=== PATIENT | female | born 1970 | race Two or more races ===

== ENCOUNTER 2016-09-07 16:33 | Inpatient (IN) | payer OTHER ==
[~2016-09-07] VITALS: Ht 162.6 cm; Wt 107.7 kg
[~2016-09-07 16:33] MED LIST: CALC667C PO; CHOL500050 PO; FOLI0.8T33 PO; METO25TA35 PO; ONDA4TAB7 PO; OXYC-223 PO; RENAL VITAMIN; VITAMIN D
[2016-09-07 17:33] LABS: BLOOD UREA NITROGEN 40 mg/dL (7-18)
[2016-09-07] MEDS ORDERED: SODIUM CHLORIDE FLUSH 10ML SYR IVF PRN (20:30)
[2016-09-07] MEDS ORDERED: BISACODYL 10 MG SUPP PR PRN (21:00)
[2016-09-07] MEDS ORDERED: OXYcodone IR 5MG TABLET PO PRN (21:00)
[2016-09-07] MEDS ORDERED: ACETAMINOPHEN 325 MG TABLET PO PRN (21:00)
[2016-09-07] MEDS ORDERED: POLYETHYLENE GLYCOL 17 GM PACKET PO PRN (21:00)
[2016-09-07] MEDS ORDERED: morphine SULFATE 10 MG/ML, 1ML IVPush PRN (21:00)
[2016-09-07] MEDS ORDERED: ENALAPRILAT 1.25 MG/ML, 2ML IVPush PRN (21:00)
[2016-09-07] MEDS ORDERED: DOCUSATE 100 MG CAPSULE PO PRN (21:00)
[2016-09-07] MEDS ORDERED: ONDANSETRON 2MG/ML, 2ML IVPush PRN (21:00)
[2016-09-07] MEDS ORDERED: METOPROLOL TARTRATE 25 MG TABLET PO PRN (22:00)
[2016-09-07 22:52] VITALS: BP 95/62
[2016-09-08 00:04] VITALS: BP 93/48
[2016-09-08 03:46] VITALS: BP 105/61
[2016-09-08 06:09] LABS: ASPARTATE AMINO TRANSFERASE 16 U/L (15-37); BLOOD UREA NITROGEN 46 mg/dL (7-18)
[2016-09-08 07:25] VITALS: BP 96/63
[2016-09-08] MEDS: CALCIUM ACETATE 667 MG CAPSULE PO SCH ×3 (08:21→21:52)
[2016-09-08] MEDS ORDERED: FOLIC ACID PO SCH (09:00)
[2016-09-08] MEDS ORDERED: VIT BCOMP C PO SCH (09:00)
[2016-09-08] MEDS ORDERED: LIDOCAINE 2%, 20ML ONE ×2 (10:21→10:57)
[2016-09-08] MEDS ORDERED: NALOXONE 1 MG/ML, 2ML ONE (10:26)
[2016-09-08] MEDS ORDERED: FLUMAZENIL 0.1 MG/1 ML, 5ML ONE (10:26)
[2016-09-08] MEDS ORDERED: MIDAZOLAM 1 MG/ML, 5ML ONE (10:26)
[2016-09-08] MEDS ORDERED: FENTANYL PF 100 MCG/2ML ONE (10:26)
[2016-09-08] MEDS ORDERED: VISIPAQUE 270 MG/ML, 50ML BOTTLE ONE (10:56)
[2016-09-08 12:15] VITALS: BP 110/72
[2016-09-08] MEDS ORDERED: ALBUMIN HUMAN 5% 250 ML IV ONE (15:00)
[2016-09-08] MEDS ORDERED: CATHFLO-ALTEPLASE 2 MG/2 ML CATHFLUSH ONE (16:00)
[2016-09-08 22:00] VITALS: BP 97/62
[2016-09-08 22:59] LABS: HEP B SURF. AB 50.1 mIU/mL (0.0-10.0)
[2016-09-09 01:24] VITALS: BP 102/66
[2016-09-09 05:13] LABS: BLOOD UREA NITROGEN 32 mg/dL (7-18)
[2016-09-09 07:20] VITALS: BP 103/68
[2016-09-09] MEDS: CALCIUM ACETATE 667 MG CAPSULE PO SCH ×3 (09:20→21:42)
[2016-09-09 13:02] VITALS: BP 118/70
[2016-09-09 19:40] VITALS: BP 138/75
[2016-09-10 01:27] VITALS: BP 131/70
[2016-09-10 07:10] VITALS: BP 174/107
[2016-09-10] MEDS: CALCIUM ACETATE 667 MG CAPSULE PO SCH ×3 (09:24→22:33)
[2016-09-10 13:50] LABS: BLOOD UREA NITROGEN 20 mg/dL (7-18)
[2016-09-10] MEDS ORDERED: ONDANSETRON 2MG/ML, 2ML IVPush PRN (15:00)
[2016-09-10] MEDS ORDERED: OXYcodone 5 MG/5 ML ORAL.SOL UDC PO PRN (15:00)
[2016-09-10] MEDS ORDERED: LABETALOL 5MG/ML, 20ML IV PRN (15:00)
[2016-09-10] MEDS ORDERED: ACETAMINOPHEN 325 MG TABLET PO PRN (15:00)
[2016-09-10] MEDS ORDERED: hydrALAzine 20 MG/ML, 1ML IV PRN (15:00)
[2016-09-10] MEDS ORDERED: HYDROmorphone 1 MG/ML, 1ML IV PRN (15:00)
[2016-09-10] MEDS ORDERED: EPHEDRINE 50 MG/ML, 1ML IVPush PRN (15:00)
[2016-09-10] MEDS ORDERED: ALBUTEROL SULFATE 2.5 MG/3 ML NPPB PRN (15:00)
[2016-09-10] MEDS ORDERED: METOPROLOL 1 MG/ML, 5ML IV PRN (15:00)
[2016-09-10] MEDS ORDERED: PROTAMINE SULFATE 10 MG/ML, 5ML ONE (15:12)
[2016-09-10] MEDS ORDERED: HEPARIN 1,000 UNITS/ML, 10ML ONE (15:12)
[2016-09-10] MEDS ORDERED: FENTANYL PF 100 MCG/2ML ONE ×3 (15:22→17:38)
[2016-09-10] MEDS ORDERED: MIDAZOLAM 1 MG/ML, 2ML ONE (15:22)
[2016-09-10] MEDS ORDERED: PROPOFOL 10 MG/ML, 20ML ONE (15:33)
[2016-09-10] MEDS ORDERED: DEXAMETHASONE 4 MG/ML, 1ML ONE (15:33)
[2016-09-10] MEDS ORDERED: ONDANSETRON 2MG/ML, 2ML ONE (15:33)
[2016-09-10] MEDS ORDERED: BUPIVACAINE/PF 0.5% ONE (16:40)
[2016-09-10] MEDS ORDERED: MORPHINE SULFATE 4 MG/ML, 1ML ONE (17:26)
[2016-09-10] MEDS ORDERED: OXYcodone 5 MG/5 ML ORAL.SOL UDC ONE (17:27)
[2016-09-10] MEDS: FENTANYL PF 100 MCG/2ML IV PRN ×2 (17:39→17:46)
[2016-09-10 20:00] VITALS: BP 138/82
[2016-09-11 01:37] VITALS: BP 111/51
[2016-09-11 07:24] VITALS: BP 122/71
[2016-09-11] MEDS: CALCIUM ACETATE 667 MG CAPSULE PO SCH (08:57)
[2016-09-11] MEDS ORDERED: ERGOCALCIFEROL 50,000 UNIT CAPSULE PO SCH (09:00)
[2016-09-11 10:16] VITALS: BP 116/76
== END 2016-09-11 11:00 | disposition home or self-care (01) | DRG 264 ==
LOC: ED 18:04 → EDIP 20:23 → 4EST 21:21 → DCLOUNGE 09-11 10:38
PROVIDERS: ADMIT Internal Medicine; ATTEND Internal Medicine
PROC: 02HV33Z Insertion of Infusion Device into Superior Vena Cava, Percutaneous Approach (ICD-10-PCS; principal; 2016-09-08)
PROC: B5181ZA Fluoroscopy of Superior Vena Cava using Low Osmolar Contrast, Guidance (ICD-10-PCS; 2016-09-08)
PROC: B548ZZA Ultrasonography of Superior Vena Cava, Guidance (ICD-10-PCS; 2016-09-08)
PROC: 5A1D60Z (ICD-10-PCS; 2016-09-08)
PROC: 031B0ZF Bypass Right Radial Artery to Lower Arm Vein, Open Approach (ICD-10-PCS; 2016-09-10)
DX: T82.868A Thrombosis due to vascular prosthetic devices, implants and grafts, initial encounter (principal); N18.6 End stage renal disease; E44.1 Mild protein-calorie malnutrition; I12.0 Hypertensive chronic kidney disease with stage 5 chronic kidney disease or end stage renal disease; Z68.41 Body mass index [BMI] 40.0-44.9, adult; Y83.2 Surgical operation with anastomosis, bypass or graft as the cause of abnormal reaction of the patient, or of later complication, without mention of misadventure at the time of the procedure; D63.1 Anemia in chronic kidney disease; D75.89 Other specified diseases of blood and blood-forming organs; K76.0 Fatty (change of) liver, not elsewhere classified; N25.0 Renal osteodystrophy; E66.9 Obesity, unspecified; I95.9 Hypotension, unspecified; Z90.49 Acquired absence of other specified parts of digestive tract; Z99.2 Dependence on renal dialysis; Z79.899 Other long term (current) drug therapy
CPT/HCPCS: 36415; 36565; 76937; 77001; 80048; 80053; 80061; 80069; 82306; 82607; 83036; 83735; 84439; 84443; 84703; 85025; 85610; 85730; 86704; 86706; 87340; 93990; 99156; 99157; C1894; J1100; J1644; J2250; J2405; J2704; J2720; J2997; J3010; J3490; Q9966; C1750; C1769; J1642; J2270; J2310

== ENCOUNTER 2017-01-28 05:40 | Day surgery (SDC) | payer OTHER ==
[~2017-01-28] VITALS: Ht 190.5 cm; Wt 104.0 kg
[~2017-01-28 05:40] MED LIST changes: -OXYC-223 PO; +OXYC-306 PO
[2017-01-28 06:04] VITALS: BP 143/92
[2017-01-28] MEDS ORDERED: LACTATED RINGERS 1,000 ML IV SCH (06:06)
[2017-01-28] MEDS ORDERED: MIDAZOLAM 1 MG/ML, 2ML ONE ×2 (06:41→07:11)
[2017-01-28] MEDS ORDERED: FENTANYL PF 100 MCG/2ML ONE ×3 (06:41→09:53)
[2017-01-28] MEDS ORDERED: HEPARIN 1,000 UNITS/ML, 10ML ONE (07:01)
[2017-01-28] MEDS ORDERED: BUPIVACAINE/PF 0.5% ONE (07:01)
[2017-01-28] MEDS ORDERED: PROTAMINE SULFATE 10 MG/ML, 5ML ONE (07:01)
[2017-01-28] MEDS ORDERED: THROMBIN 5,000 UNIT VIAL TP ONE (07:01)
[2017-01-28] MEDS ORDERED: PROPOFOL 10 MG/ML, 20ML ONE ×5 (07:09→07:10)
[2017-01-28] MEDS ORDERED: CEFAZOLIN 1,000 MG ONE ×2 (07:12)
[2017-01-28] MEDS ORDERED: PHENYLEPHRINE 10 MG/ML ONE ×2 (07:12→07:43)
[2017-01-28] MEDS ORDERED: WATER-INJECTION,STERILE 10 ML IV ONE (07:12)
[2017-01-28] MEDS ORDERED: LIDOCAINE-MPF 2% ,5ML ONE (07:15)
[2017-01-28] MEDS ORDERED: DEXAMETHASONE 4 MG/ML, 1ML ONE ×2 (07:43→08:02)
[2017-01-28] MEDS ORDERED: SODIUM CHLORIDE 0.9% 1,000 ML IV SCH (08:01)
[2017-01-28] MEDS ORDERED: HYDROmorphone 1 MG/ML, 1ML ONE (09:00)
[2017-01-28] MEDS ORDERED: ONDANSETRON 2MG/ML, 2ML ONE ×2 (09:07→09:41)
[2017-01-28] MEDS ORDERED: KETOROLAC 30 MG/1 ML ONE (09:08)
[2017-01-28] MEDS ORDERED: PROMETHAZINE 25 MG/ML, 1ML ONE ×2 (09:20→10:07)
[2017-01-28] MEDS ORDERED: ACETAMINOPHEN 325 MG TABLET PO PRN (09:30)
[2017-01-28] MEDS ORDERED: HYDROmorphone 1 MG/ML, 1ML IV PRN (09:30)
[2017-01-28] MEDS ORDERED: FENTANYL PF 100 MCG/2ML IV PRN (09:30)
[2017-01-28] MEDS ORDERED: MEPERIDINE/PF 25MG/0.5ML IVPush PRN (09:30)
[2017-01-28] MEDS ORDERED: PROMETHAZINE 25 MG/ML, 1ML IV PRN (09:30)
[2017-01-28] MEDS ORDERED: OXYcodone 5 MG/5 ML ORAL.SOL UDC PO PRN (09:30)
[2017-01-28] MEDS ORDERED: LABETALOL 5MG/ML, 20ML IV PRN (09:30)
[2017-01-28] MEDS ORDERED: ONDANSETRON 2MG/ML, 2ML IVPush PRN (09:30)
[2017-01-28] MEDS ORDERED: hydrALAzine 20 MG/ML, 1ML IV PRN (09:30)
[2017-01-28] MEDS ORDERED: HEPARIN 5,000 UNITS/ML, 1ML IV ONE (10:30)
[2017-01-28] MEDS ORDERED: HEPARIN 1,000 UNITS/ML, 1ML IV ONE (11:00)
== END 2017-01-28 16:40 ==
LOC: OUT 05:40
PROVIDERS: ATTEND Surgery
DX: N18.6 End stage renal disease (principal)
CPT/HCPCS: 36415; 36821; 80047; J0690; J1100; J1170; J1644; J1885; J2250; J2370; J2405; J2550; J2704; J2720; J3010; J3490

== ENCOUNTER 2017-10-22 01:46 | Emergency (ER) | payer MEDICAID, OTHER ==
[~2017-10-22] VITALS: Ht 160 cm; Wt 100.0 kg
[2017-10-22 01:51] VITALS: BP 177/114
[2017-10-22] MEDS ORDERED: HYDROcodone/APAP 5/325 TABLET ONE (02:24)
[2017-10-22] MEDS ORDERED: HYDROcodone/APAP 5/325 TABLET PO PRN (02:30)
== END 2017-10-22 04:52 | disposition home or self-care (01) ==
LOC: ED 03:29
DX: S62.102A Fracture of unspecified carpal bone, left wrist, initial encounter for closed fracture (principal); I12.0 Hypertensive chronic kidney disease with stage 5 chronic kidney disease or end stage renal disease; N18.6 End stage renal disease; Z99.2 Dependence on renal dialysis; W19.XXXA Unspecified fall, initial encounter; Y93.89 Activity, other specified; Y92.89 Other specified places as the place of occurrence of the external cause; Y99.8 Other external cause status
CPT/HCPCS: 29125; 99284

== ENCOUNTER 2020-01-21 09:29 | Inpatient (IN) | payer MEDICAID ==
[~2020-01-21] VITALS: Ht 162.6 cm; Wt 108.5 kg
--- NOTE | 2020-01-21 10:20 | NUR ---
PT DESATS TO 83% WHILE IN ROOM, PT PLACED ON 2.5L NC, PT STATES SHE HAS HX OF SLEEP APNEA AND HAD WORN O2 AT HOME AT NIGHT BUT HAS NOT IN THREE YRS. ERP UPDATED
[2020-01-21 10:58] LABS: BASOPHILS % (AUTO) 0 % (0-1); EOSINOPHILS # (AUTO) 0.02 x10^3/uL (0-0.4); EOSINOPHILS % (AUTO) 0 % (1-7); LYMPHOCYTES # (AUTO) 0.68 x10^3/uL (1-3.4); LYMPHOCYTES % (AUTO) 9 % (22-44); MD NO; MEAN CORPUSCULAR HEMOGLOBIN 33.4 pg (27.0-34.8); MEAN CORPUSCULAR HGB CONC 32.9 g/dL (32.4-35.8); MEAN PLATELET VOLUME 8.1 fL (7.4-10.4); MONOCYTES # (AUTO) 0.54 x10^3/uL (0.2-0.8); MONOCYTES % (AUTO) 7 % (2-9); NEUTROPHILS # (AUTO) 6.03 x10^3/uL (1.8-6.8); NEUTROPHILS % (AUTO) 83 % (42-75); PLATELET COUNT 217 x10^3/uL (130-400); RED BLOOD COUNT 3.92 x10^6/uL (3.82-5.3); RED CELL DISTRIBUTION WIDTH 14.7 % (9.6-15.2)
[2020-01-21] MEDS ORDERED: CEFTRIAXONE PMX 1GM/50ML 50 ML IVPB ONE (11:00)
[2020-01-21] MEDS ORDERED: DOXYCYCLINE 100 MG in DEXTROSE 5% 250 ML IV ONE (11:00)
[2020-01-21 11:06] LABS: ALANINE AMINOTRANSFERASE 21 U/L (12-78); ALBUMIN 2.7 g/dL (3.4-5.0); ANION GAP 16 mmol/L (5-15); CALCIUM 9.1 mg/dL (8.5-10.1); CHLORIDE 95 mmol/L (98-107)
[2020-01-21 11:08] LABS: ALKALINE PHOSPHATASE 76 U/L (45-117); BILIRUBIN,TOTAL 0.5 mg/dL (0.2-1.0); TOTAL PROTEIN 7.7 g/dL (6.4-8.2)
[2020-01-21] MEDS ORDERED: CEFTRIAXONE PMX 1GM/50ML 50 ML ONE (11:09)
--- NOTE | 2020-01-21 11:29 | NUR ---
PIV INITIATED BY TASK RN, ABX BEGAN POST BC DRAW. VSS, PT REMAINS 98-99% ON 3L.
--- NOTE | 2020-01-21 11:32 | NUR ---
RN WINSOME IS ASSISTING THE PRIMARY CARE RN WITH THE PT.'S CARE. PT. REMAINS MONITORED WITH THE HOB ELEVATED GREATER THAN 30 DEGREES. VSS. IV ACCESS ESTABLISHED. BLOOD CULTURES DRAWN X 2 WELL OTHER LABS. PT.'S IV ABX ARE INFUSING AFTER LABS WERE OBTAINED. PT. IS RESTING WITHOUT CONCERNS, WITH A BLANKET IN PLACE FOR WARMTH. SIDERAILS REMAIN UP X 2 WITH THE CALL LIGHT IN REACH.
[2020-01-21 11:58] LABS: D-DIMER (DIC) 0.74 ug/mlFEU (0.00-0.52); PROTIME 10.2 Seconds (9.6-11.5)
[2020-01-21] MEDS ORDERED: METOPROLOL TARTRATE 25 MG TAB PO PRN (12:00)
--- NOTE | 2020-01-21 12:57 | NUR ---
PT RESTING ON GURNEY AT THIS TIME, VISIBLE CHEST RISE AND FALL NOTED. VSS. THIS RN SPOKE WITH NEPHRO, ORDERS PLACED FOR HEMODIAYLSIS.
--- NOTE | 2020-01-21 14:04 | NUR ---
DR TRUONG (ADMITTING) CALLED TO OBTAIN ADMISSION ORDER, SHE IS ON HER WAY TO SEE PT
[2020-01-21] MEDS: DOXYCYCLINE 100 MG in DEXTROSE 5% 250 ML IV SCH (14:30)
[2020-01-21] MEDS: CEFTRIAXONE PMX 1GM/50ML 50 ML IV SCH (14:30)
--- NOTE | 2020-01-21 15:04 | NUR ---
REPORT RECEIVED FROM SANDRO URENA. PLAN OF CARE DISCUSSED.
--- NOTE | 2020-01-21 15:45 | NUR ---
ATTEMPTED TO CALL REPORT X1.
--- NOTE | 2020-01-21 16:00 | NUR ---
REPORT GIVEN TO SANDRO DOAN. PLAN OF CARE DISCUSSED
[2020-01-21 16:34] VITALS: BP 114/72
[2020-01-21] MEDS: CALCIUM ACETATE 667 MG CAPSULE PO SCH ×2 (17:45→19:18)
[2020-01-21] MEDS: HEPARIN 5,000 UNITS/ML, 1ML SQ SCH (19:18)
[2020-01-21 19:48] VITALS: BP 136/84
[2020-01-21 22:59] VITALS: BP 98/64
[2020-01-21] MEDS: ACETAMINOPHEN 325 MG TABLET PO PRN (23:22)
[2020-01-22 01:20] VITALS: BP 101/61
[2020-01-22] MEDS: DOXYCYCLINE 100 MG in DEXTROSE 5% 250 ML IV SCH ×2 (03:19→16:18)
[2020-01-22 06:06] LABS: BASOPHILS # (AUTO) 0.02 x10^3/uL (0-0.1); BASOPHILS % (AUTO) 0 % (0-1); EOSINOPHILS % (AUTO) 0 % (1-7); LYMPHOCYTES # (AUTO) 1.12 x10^3/uL (1-3.4); LYMPHOCYTES % (AUTO) 17 % (22-44); MD NO; MEAN CORPUSCULAR HEMOGLOBIN 33.1 pg (27.0-34.8); MEAN CORPUSCULAR HGB CONC 32.7 g/dL (32.4-35.8); MEAN PLATELET VOLUME 7.7 fL (7.4-10.4); MONOCYTES # (AUTO) 0.73 x10^3/uL (0.2-0.8); MONOCYTES % (AUTO) 11 % (2-9); NEUTROPHILS # (AUTO) 4.64 x10^3/uL (1.8-6.8); NEUTROPHILS % (AUTO) 71 % (42-75); PLATELET COUNT 208 x10^3/uL (130-400); RED BLOOD COUNT 3.77 x10^6/uL (3.82-5.3); RED CELL DISTRIBUTION WIDTH 14.1 % (9.6-15.2)
[2020-01-22 06:17] LABS: ANION GAP 12 mmol/L (5-15); CALCIUM 9.1 mg/dL (8.5-10.1); CHLORIDE 96 mmol/L (98-107); CREATININE 8.55 mg/dL (0.55-1.02)
[2020-01-22 07:57] VITALS: BP 105/71
[2020-01-22] MEDS: CALCIUM ACETATE 667 MG CAPSULE PO SCH ×3 (08:46→20:14)
[2020-01-22] MEDS: HEPARIN 5,000 UNITS/ML, 1ML SQ SCH ×2 (08:47→19:44)
[2020-01-22] MEDS ORDERED: MULTIVITS,STRESS FORMULA 1 TABLET PO SCH (09:00)
[2020-01-22] MEDS ORDERED: ALBUMIN HUMAN 25% 100 ML ONE (10:57)
[2020-01-22] MEDS ORDERED: ALBUMIN HUMAN 25% 50 ML IV PRN (11:00)
[2020-01-22] MEDS ORDERED: ALBUMIN HUMAN 25% 100 ML IV PRN (11:00)
[2020-01-22 14:00] VITALS: BP 97/59
[2020-01-22] MEDS ORDERED: REMDESIVIR 100 MG in SODIUM CHLORIDE 0.9% 250 ML IVPB ONE (15:00)
[2020-01-22] MEDS: CEFTRIAXONE PMX 1GM/50ML 50 ML IV SCH (15:43)
[2020-01-22] MEDS ORDERED: ASCORBIC ACID 500 MG TABLET ONE (16:54)
[2020-01-22] MEDS: ASCORBIC ACID 250 MG TAB PO SCH (17:07)
[2020-01-22] MEDS: ACETAMINOPHEN 325 MG TABLET PO PRN (19:45)
[2020-01-22 19:53] VITALS: BP 98/59
[2020-01-22] MEDS: DEXAMETHASONE 4 MG/ML, 1ML IVPush SCH (20:14)
[2020-01-22] MEDS: THIAMINE 100MG TABLET PO SCH (20:14)
[2020-01-23 01:23] VITALS: BP 95/57
[2020-01-23 01:47] VITALS: BP 98/62
[2020-01-23] MEDS: DOXYCYCLINE 100 MG in DEXTROSE 5% 250 ML IV SCH ×2 (01:52→18:10)
[2020-01-23] MEDS: HEPARIN 5,000 UNITS/ML, 1ML SQ SCH (01:53)
[2020-01-23] MEDS: ACETAMINOPHEN 325 MG TABLET PO PRN (04:44)
[2020-01-23 06:02] LABS: INTERNATIONAL NORMALIZED RATIO 1.02 (0.93-1.1); PROTHROMBIN TIME 10.5 Seconds (9.6-11.5)
[2020-01-23 06:04] LABS: CHLORIDE 95 mmol/L (98-107)
[2020-01-23 06:13] LABS: ALANINE AMINOTRANSFERASE 22 U/L (12-78); ALBUMIN 2.8 g/dL (3.4-5.0); ALKALINE PHOSPHATASE 71 U/L (45-117); ANION GAP 13 mmol/L (5-15); BILIRUBIN,TOTAL 0.5 mg/dL (0.2-1.0); CALCIUM 9.9 mg/dL (8.5-10.1); CREATININE 6.78 mg/dL (0.55-1.02); TOTAL PROTEIN 8.2 g/dL (6.4-8.2)
[2020-01-23 08:16] VITALS: BP 90/60
[2020-01-23] MEDS: CALCIUM ACETATE 667 MG CAPSULE PO SCH ×3 (08:43→20:26)
[2020-01-23] MEDS: ZINC SULFATE 220 MG CAPSULE PO SCH (08:43)
[2020-01-23] MEDS: DEXAMETHASONE 4 MG/ML, 1ML IVPush SCH ×2 (08:43→12:48)
[2020-01-23] MEDS: THIAMINE 100MG TABLET PO SCH ×2 (08:43→20:05)
[2020-01-23] MEDS: ASCORBIC ACID 250 MG TAB PO SCH ×2 (08:43→17:24)
[2020-01-23] MEDS ORDERED: HEPARIN 5,000 UNITS/ML, 1ML IV ONE (09:30)
[2020-01-23] MEDS ORDERED: HEPARIN 5,000 UNITS/ML, 1ML IV PRN (09:30)
[2020-01-23] MEDS: HEPARIN 25,000 UNITS/250ML PMX 250 ML IV PRN (12:49)
[2020-01-23 13:03] VITALS: BP 106/70
[2020-01-23] MEDS: CEFTRIAXONE PMX 1GM/50ML 50 ML IV SCH (17:17)
[2020-01-23] MEDS ORDERED: ASCORBIC ACID 500 MG TABLET ONE (17:22)
[2020-01-23] MEDS: REMDESIVIR 50 MG in SODIUM CHLORIDE 0.9% 250 ML IVPB SCH (20:05)
[2020-01-23 20:26] VITALS: BP 97/64
[2020-01-24 00:44] VITALS: BP 95/65
[2020-01-24] MEDS: DOXYCYCLINE 100 MG in DEXTROSE 5% 250 ML IV SCH ×2 (02:45→16:32)
[2020-01-24 05:25] LABS: CHLORIDE 94 mmol/L (98-107)
[2020-01-24 05:34] LABS: ALANINE AMINOTRANSFERASE 23 U/L (12-78); ALBUMIN 2.4 g/dL (3.4-5.0); ALKALINE PHOSPHATASE 61 U/L (45-117); ANION GAP 16 mmol/L (5-15); BILIRUBIN,TOTAL 0.3 mg/dL (0.2-1.0); CALCIUM 9.6 mg/dL (8.5-10.1); TOTAL PROTEIN 7.2 g/dL (6.4-8.2)
[2020-01-24 06:56] VITALS: BP 101/67
[2020-01-24] MEDS ORDERED: ASCORBIC ACID 500 MG TABLET ONE ×2 (09:00→16:29)
[2020-01-24] MEDS: CALCIUM ACETATE 667 MG CAPSULE PO SCH ×3 (09:09→19:46)
[2020-01-24] MEDS: ASCORBIC ACID 250 MG TAB PO SCH ×2 (09:09→16:33)
[2020-01-24] MEDS: THIAMINE 100MG TABLET PO SCH ×2 (09:09→19:46)
[2020-01-24] MEDS: ZINC SULFATE 220 MG CAPSULE PO SCH (09:10)
[2020-01-24] MEDS: DEXAMETHASONE 4 MG/ML, 1ML IVPush SCH (09:11)
[2020-01-24] MEDS: HEPARIN 25,000 UNITS/250ML PMX 250 ML IV PRN (11:26)
[2020-01-24] MEDS: ONDANSETRON 2MG/ML, 2ML IVPush PRN (11:38)
[2020-01-24 12:19] VITALS: BP 114/68
[2020-01-24] MEDS: CEFTRIAXONE PMX 1GM/50ML 50 ML IV SCH (15:14)
[2020-01-24 19:30] VITALS: BP 112/67
[2020-01-24] MEDS: REMDESIVIR 50 MG in SODIUM CHLORIDE 0.9% 250 ML IVPB SCH (19:46)
[2020-01-24] MEDS: ACETAMINOPHEN 325 MG TABLET PO PRN (23:06)
[2020-01-25 00:44] VITALS: BP 108/67
[2020-01-25] MEDS: DOXYCYCLINE 100 MG in DEXTROSE 5% 250 ML IV SCH (02:12)
[2020-01-25 06:38] LABS: CHLORIDE 90 mmol/L (98-107)
[2020-01-25 06:42] LABS: INTERNATIONAL NORMALIZED RATIO 1.11 (0.93-1.1); PROTHROMBIN TIME 11.4 Seconds (9.6-11.5)
[2020-01-25 06:44] LABS: ALANINE AMINOTRANSFERASE 46 U/L (12-78); ALBUMIN 2.3 g/dL (3.4-5.0); ALKALINE PHOSPHATASE 64 U/L (45-117); ANION GAP 19 mmol/L (5-15); BILIRUBIN,TOTAL 0.4 mg/dL (0.2-1.0); TOTAL PROTEIN 7.1 g/dL (6.4-8.2)
[2020-01-25 07:04] VITALS: BP 118/67
[2020-01-25] MEDS: ASCORBIC ACID 250 MG TAB PO SCH ×2 (08:00→16:09)
[2020-01-25] MEDS ORDERED: ASCORBIC ACID 500 MG TABLET ONE (08:49)
[2020-01-25] MEDS: ZINC SULFATE 220 MG CAPSULE PO SCH (09:20)
[2020-01-25] MEDS: DEXAMETHASONE 4 MG/ML, 1ML IVPush SCH (09:20)
[2020-01-25] MEDS: THIAMINE 100MG TABLET PO SCH ×2 (09:20→21:35)
[2020-01-25] MEDS: CALCIUM ACETATE 667 MG CAPSULE PO SCH ×3 (09:20→21:35)
[2020-01-25] MEDS: AMOXICILLIN/CLAV 875-125MG TABLET PO SCH ×2 (10:19→21:35)
[2020-01-25] MEDS: DOXYCYCLINE 100MG TABLET PO SCH ×2 (10:19→21:35)
[2020-01-25] MEDS: ONDANSETRON 2MG/ML, 2ML IVPush PRN (11:55)
[2020-01-25 12:10] VITALS: BP 124/79
[2020-01-25] MEDS: HEPARIN 25,000 UNITS/250ML PMX 250 ML IV PRN (14:31)
[2020-01-25 19:16] VITALS: BP 104/68
[2020-01-25] MEDS: REMDESIVIR 50 MG in SODIUM CHLORIDE 0.9% 250 ML IVPB SCH (21:34)
[2020-01-26 00:58] VITALS: BP 108/69
[2020-01-26 06:11] LABS: ALANINE AMINOTRANSFERASE 123 U/L (12-78); ALBUMIN 3.3 g/dL (3.4-5.0); ANION GAP 13 mmol/L (5-15); CALCIUM 10.1 mg/dL (8.5-10.1); CHLORIDE 99 mmol/L (98-107); CREATININE 7.17 mg/dL (0.55-1.02)
[2020-01-26 06:13] LABS: ALKALINE PHOSPHATASE 69 U/L (45-117); BILIRUBIN,TOTAL 0.6 mg/dL (0.2-1.0); TOTAL PROTEIN 7.3 g/dL (6.4-8.2)
[2020-01-26 07:28] VITALS: BP 107/68
[2020-01-26] MEDS ORDERED: ASCORBIC ACID 500 MG TABLET ONE ×2 (08:18→16:17)
[2020-01-26] MEDS: ASCORBIC ACID 250 MG TAB PO SCH ×2 (08:24→16:38)
[2020-01-26] MEDS: THIAMINE 100MG TABLET PO SCH (08:24)
[2020-01-26] MEDS: DOXYCYCLINE 100MG TABLET PO SCH (08:24)
[2020-01-26] MEDS: ZINC SULFATE 220 MG CAPSULE PO SCH (08:24)
[2020-01-26] MEDS: CALCIUM ACETATE 667 MG CAPSULE PO SCH ×2 (08:24→16:37)
[2020-01-26] MEDS: AMOXICILLIN/CLAV 875-125MG TABLET PO SCH (08:24)
[2020-01-26 11:51] VITALS: BP 109/70
[2020-01-26] MEDS ORDERED: ERGOCALCIFEROL 50,000 UNIT CAPSULE PO SCH (12:00)
[2020-01-26] MEDS: REMDESIVIR 50 MG in SODIUM CHLORIDE 0.9% 250 ML IVPB SCH (13:23)
[2020-01-26] MEDS ORDERED: DOXY100T PO (15:05)
[2020-01-26] MEDS ORDERED: THIA100T67 PO (15:05)
[2020-01-26] MEDS ORDERED: ASCO250T12 PO (15:05)
[2020-01-26] MEDS ORDERED: ZINC220C7 PO (15:05)
[2020-01-26] MEDS ORDERED: AMOX1TAB12 PO (15:05)
[2020-01-26] MEDS ORDERED: APIX2.5T PO (15:45)
[2020-01-27] MEDS ORDERED: RIVAROXABAN 10 MG TABLET PO SCH (06:00)
== END 2020-01-26 19:45 | disposition home or self-care (01) | DRG 137 ==
LOC: ED 10:35 → EDIP 14:18 → 4EST 16:20
PROVIDERS: ADMIT Internal Medicine; ATTEND Internal Medicine
PROC: 5A1D70Z Performance of Urinary Filtration, Intermittent, Less than 6 Hours Per Day (ICD-10-PCS; principal; 2020-01-22)
PROC: XW13325 Transfusion of Convalescent Plasma (Nonautologous) into Peripheral Vein, Percutaneous Approach, New Technology Group 5 (ICD-10-PCS; 2020-01-23)
PROC: XW033E5 Introduction of Remdesivir Anti-infective into Peripheral Vein, Percutaneous Approach, New Technology Group 5 (ICD-10-PCS; 2020-01-23)
PROC: 5A1D70Z Performance of Urinary Filtration, Intermittent, Less than 6 Hours Per Day (ICD-10-PCS; 2020-01-25)
DX: U07.1 COVID-19 (principal); J12.89 Other viral pneumonia; J96.01 Acute respiratory failure with hypoxia; D75.89 Other specified diseases of blood and blood-forming organs; D63.1 Anemia in chronic kidney disease; I12.0 Hypertensive chronic kidney disease with stage 5 chronic kidney disease or end stage renal disease; N18.6 End stage renal disease; Z99.2 Dependence on renal dialysis; Z90.49 Acquired absence of other specified parts of digestive tract; E66.01 Morbid (severe) obesity due to excess calories; Z68.41 Body mass index [BMI] 40.0-44.9, adult; Z91.040 Latex allergy status; Z91.048 Other nonmedicinal substance allergy status; E87.70 Fluid overload, unspecified; J81.1 Chronic pulmonary edema; Z78.9 Other specified health status; G47.30 Sleep apnea, unspecified; I95.9 Hypotension, unspecified
CPT/HCPCS: 36415; 71045; 80048; 80053; 82728; 83605; 83615; 84145; 85025; 85049; 85379; 85384; 85520; 85610; 85730; 86140; 86705; 86706; 87040; 87340; 87635; 90935; 93005; 96365; 96375; 99285; G0378; J0696; J1100; J1644; J2405; J7060; J7050

== ENCOUNTER 2020-11-03 13:50 | Emergency (ER) | payer MEDICAID ==
[~2020-11-03 13:50] MED LIST changes: +AMOX1TAB12 PO; +APIX2.5T PO; +ASCO250T12 PO; +DOXY100T PO; -OXYC-306 PO; +OXYC1TAB17 PO; +THIA100T67 PO; +ZINC220C7 PO
[2020-11-04] MEDS ORDERED: OXYC1TAB14 PO (12:48)
[2020-11-04] MEDS ORDERED: SULF1TAB24 PO (12:51)
== END 2020-11-03 15:02 | disposition home or self-care (01) ==
LOC: ED 14:55
DX: Z02.9 Encounter for administrative examinations, unspecified (principal)

== ENCOUNTER 2020-11-03 13:52 | Observation (INO) | payer MEDICAID ==
[~2020-11-03] VITALS: Ht 157.5 cm; Wt 103.0 kg
--- NOTE | 2020-11-03 14:37 | NUR ---
task RN: pt has purulent drainage from dialysis fistula. Dr. Goldberg has been to bedside and wound culture has been collected. pt sitting up on gurney in position of comfort
--- NOTE | 2020-11-03 15:12 | NUR ---
UNABLE TO START PIVX1. SOPHIE JO AT BEDSIDE W/ US.
[2020-11-03 15:55] LABS: BASOPHILS % (AUTO) 1 % (0-1); EOSINOPHILS % (AUTO) 0 % (1-7); LYMPHOCYTES % (AUTO) 15 % (22-44); MEAN CORPUSCULAR HGB CONC 33.6 g/dL (32.4-35.8); MONOCYTES % (AUTO) 13 % (2-9); NEUTROPHILS % (AUTO) 72 % (42-75); PLATELET COUNT 204 x10^3/uL (130-400); RED BLOOD COUNT 3.77 x10^6/uL (3.82-5.3)
[2020-11-03 16:04] LABS: ANION GAP 10 mmol/L (5-15); CALCIUM 9.9 mg/dL (8.5-10.1); CHLORIDE 96 mmol/L (98-107); CREATININE 9.25 mg/dL (0.55-1.02)
[2020-11-03] MEDS ORDERED: LORazepam 2 MG/ML, 1ML ONE (17:48)
[2020-11-03] MEDS ORDERED: FENTANYL PF 100 MCG/2ML ONE (17:48)
[2020-11-03] MEDS ORDERED: LIDOCAINE-MPF 1%, 5ML ONE (17:53)
--- NOTE | 2020-11-03 17:55 | NUR ---
AT BEDSIDE FOR I&D. MEDICATED PER EMAR. STEVEN HURLEY.
[2020-11-03] MEDS ORDERED: SULFAMETH./TRIMETHOPRIM DS 800MG/160MG TABLET PO ONE (18:30)
[2020-11-03] MEDS ORDERED: LORazepam 2 MG/ML, 1ML IVPush ONE (18:30)
[2020-11-03] MEDS ORDERED: FENTANYL PF 100 MCG/2ML IVPush ONE (18:30)
[2020-11-03] MEDS ORDERED: MELATONIN 5 MG TABLET PO PRN (19:00)
[2020-11-03] MEDS ORDERED: ACETAMINOPHEN 325 MG TABLET PO PRN (19:00)
[2020-11-03] MEDS ORDERED: OXYcodone IR 5MG TABLET PO PRN (19:00)
[2020-11-03] MEDS ORDERED: LABETALOL 5MG/ML, 20ML IVPush PRN (19:00)
[2020-11-03] MEDS ORDERED: POLYETHYLENE GLYCOL 17 GM PACKET PO PRN (19:00)
[2020-11-03] MEDS ORDERED: HEPARIN 5,000 UNITS/ML, 1ML SQ SCH (19:00)
[2020-11-03] MEDS ORDERED: HYDROmorphone 2 MG/ML, 1ML IVPush PRN (19:00)
[2020-11-03] MEDS ORDERED: ONDANSETRON 2MG/ML, 2ML IVPush PRN (19:00)
[2020-11-03] MEDS ORDERED: METOPROLOL TARTRATE 25 MG TAB PO PRN (19:00)
--- NOTE | 2020-11-03 19:01 | NUR ---
Report from Ellen JO
[2020-11-03] MEDS ORDERED: SULFAMETH./TRIMETHOPRIM DS 800MG/160MG TABLET ONE (19:02)
[2020-11-03] MEDS: CALCIUM ACETATE 667 MG CAPSULE PO SCH (21:34)
[2020-11-03] MEDS: APIXABAN 2.5 MG TABLET PO SCH (21:34)
[2020-11-03] MEDS: THIAMINE 100MG TABLET PO SCH (21:35)
[2020-11-04 01:02] VITALS: BP 105/67
[2020-11-04 04:32] LABS: BASOPHILS % (AUTO) 1 % (0-1); EOSINOPHILS % (AUTO) 1 % (1-7); LYMPHOCYTES % (AUTO) 22 % (22-44); MEAN CORPUSCULAR HEMOGLOBIN 34.7 pg (27.0-34.8); MEAN CORPUSCULAR HGB CONC 34.4 g/dL (32.4-35.8); MEAN PLATELET VOLUME 8.9 fL (7.4-10.4); MONOCYTES % (AUTO) 14 % (2-9); NEUTROPHILS % (AUTO) 61 % (42-75); PLATELET COUNT 191 x10^3/uL (130-400); RED BLOOD COUNT 3.37 x10^6/uL (3.82-5.3); RED CELL DISTRIBUTION WIDTH 13.9 % (9.6-15.2)
[2020-11-04 04:43] LABS: ANION GAP 9 mmol/L (5-15); CALCIUM 9.7 mg/dL (8.5-10.1); CHLORIDE 97 mmol/L (98-107)
[2020-11-04 06:59] VITALS: BP 110/73
[2020-11-04] MEDS ORDERED: ASCORBIC ACID 250 MG TAB PO SCH (08:00)
[2020-11-04] MEDS: CALCIUM ACETATE 667 MG CAPSULE PO SCH (08:54)
[2020-11-04] MEDS: THIAMINE 100MG TABLET PO SCH (08:54)
[2020-11-04] MEDS: APIXABAN 2.5 MG TABLET PO SCH (08:54)
[2020-11-04] MEDS ORDERED: ZINC SULFATE 220 MG CAPSULE PO SCH (09:00)
[2020-11-04] MEDS ORDERED: OXYC1TAB14 PO (12:48)
[2020-11-04] MEDS ORDERED: SULF1TAB24 PO (12:51)
[2020-11-04 16:29] VITALS: BP 102/55
== END 2020-11-04 17:18 | disposition home or self-care (01) ==
LOC: ED 18:52 → EDIP 18:58 → 4EST 20:42
PROVIDERS: ADMIT Internal Medicine; ATTEND Internal Medicine
DX: T82.898A Other specified complication of vascular prosthetic devices, implants and grafts, initial encounter (principal); T82.868A Thrombosis due to vascular prosthetic devices, implants and grafts, initial encounter; I12.0 Hypertensive chronic kidney disease with stage 5 chronic kidney disease or end stage renal disease; N18.6 End stage renal disease; L02.413 Cutaneous abscess of right upper limb; D63.1 Anemia in chronic kidney disease; E87.1 Hypo-osmolality and hyponatremia; Z91.040 Latex allergy status; Z79.899 Other long term (current) drug therapy; Z79.01 Long term (current) use of anticoagulants; Z99.2 Dependence on renal dialysis
CPT/HCPCS: 36415; 76882; 80048; 82040; 83605; 84145; 85025; 87040; 87070; 87077; 87186; 87205; 96374; 96375; 99284; G0378; J2060; J3010; G0257

== ENCOUNTER 2020-11-09 08:15 | Emergency (ER) | payer MEDICAID ==
[~2020-11-09] VITALS: Ht 157.5 cm; Wt 104.4 kg
[~2020-11-09 08:15] MED LIST changes: +OXYC1TAB14 PO; +SULF1TAB24 PO
[2020-11-09 10:08] LABS: ALBUMIN 3.1 g/dL (3.4-5.0); ANION GAP 8 mmol/L (5-15); BASOPHILS % (AUTO) 1 % (0-1); CALCIUM 9.9 mg/dL (8.5-10.1); CHLORIDE 97 mmol/L (98-107); EOSINOPHILS % (AUTO) 2 % (1-7); LYMPHOCYTES % (AUTO) 26 % (22-44); MEAN CORPUSCULAR HEMOGLOBIN 34.1 pg (27.0-34.8); MEAN CORPUSCULAR HGB CONC 33.6 g/dL (32.4-35.8); MEAN PLATELET VOLUME 8.2 fL (7.4-10.4); MONOCYTES % (AUTO) 9 % (2-9); NEUTROPHILS % (AUTO) 62 % (42-75); PLATELET COUNT 351 x10^3/uL (130-400); RED BLOOD COUNT 3.79 x10^6/uL (3.82-5.3); RED CELL DISTRIBUTION WIDTH 14.3 % (9.6-15.2)
[2020-11-09 11:42] VITALS: BP 102/68
--- NOTE | 2020-11-09 11:46 | NUR ---
PT REC'VD DISCHARGE INSTRUCTIONS AND EDUCATION. PT HAD NO FURTHER QUESTIONS. PT AMBULATED TO DC AREA, STEADY GAIT.
--- NOTE | 2020-11-09 11:50 | NUR ---
PT PUT BACK IN ROOM AT REQUEST OF NEPHROLOGY. NBEPHROLOGY TO COME SEE PT IN ED.
--- NOTE | 2020-11-09 12:20 | NUR ---
PT RELEASED BY NEPHRO. AMBULATED TO DC AREA, STEADY GAIT. SON WITH PT.
== END 2020-11-09 12:23 | disposition home or self-care (01) ==
LOC: ED 09:12
DX: S50.01XA Contusion of right elbow, initial encounter (principal); L03.113 Cellulitis of right upper limb; I12.0 Hypertensive chronic kidney disease with stage 5 chronic kidney disease or end stage renal disease; N18.6 End stage renal disease; Z99.2 Dependence on renal dialysis; X58.XXXA Exposure to other specified factors, initial encounter; Y93.89 Activity, other specified; Y92.89 Other specified places as the place of occurrence of the external cause; Y99.8 Other external cause status
CPT/HCPCS: 36415; 80048; 82040; 85025; 99284

== ENCOUNTER 2020-12-12 08:51 | Inpatient (IN) | payer MEDICAID ==
[~2020-12-12] VITALS: Ht 160 cm; Wt 117.0 kg
--- NOTE | 2020-12-12 09:38 | NUR ---
PATIENT TO ROOM FROM LOBBY
[2020-12-12] MEDS ORDERED: SODIUM CHLORIDE FLUSH 10ML SYR IVF ONE (10:00)
[2020-12-12 10:22] LABS: BASOPHILS % (AUTO) 0 % (0-1); EOSINOPHILS % (AUTO) 2 % (1-7); LYMPHOCYTES % (AUTO) 29 % (22-44); MEAN CORPUSCULAR HEMOGLOBIN 34.1 pg (27.0-34.8); MEAN CORPUSCULAR HGB CONC 33.3 g/dL (32.4-35.8); MEAN PLATELET VOLUME 8.6 fL (7.4-10.4); MONOCYTES % (AUTO) 9 % (2-9); NEUTROPHILS % (AUTO) 59 % (42-75); PLATELET COUNT 206 x10^3/uL (130-400); RED BLOOD COUNT 4.07 x10^6/uL (3.82-5.3)
[2020-12-12 10:31] LABS: ALANINE AMINOTRANSFERASE 13 U/L (12-78); ALBUMIN 3.5 g/dL (3.4-5.0); ANION GAP 14 mmol/L (5-15); CALCIUM 10.5 mg/dL (8.5-10.1); CHLORIDE 100 mmol/L (98-107)
[2020-12-12 10:34] LABS: ALKALINE PHOSPHATASE 74 U/L (45-117); BILIRUBIN,TOTAL 0.6 mg/dL (0.2-1.0); TOTAL PROTEIN 8.2 g/dL (6.4-8.2)
[2020-12-12 11:07] LABS: INTERNATIONAL NORMALIZED RATIO 1.03 (0.93-1.1)
--- NOTE | 2020-12-12 11:30 | NUR ---
PT RESTING IN BED IN [facility]. NO STATED NEEDS AT THIS TIME. PT LAST ATE AT 0530 TODAY. PT AWARE TO BE NPO, PER LAVINIA IRENE THEY WANT TO DO SURGERY TODAY.
[2020-12-12] MEDS: METOPROLOL TARTRATE 25 MG TAB PO SCH ×2 (12:00→21:00)
--- NOTE | 2020-12-12 12:19 | NUR ---
IV STARTED. PT ON VITALS MONITORS. PT AWARE SHE WILL BE ADMITTED.
[2020-12-12] MEDS ORDERED: VANCOMYCIN PER PHARMACY MC PRN (12:30)
[2020-12-12] MEDS ORDERED: ONDANSETRON 2MG/ML, 2ML IVPush PRN (12:30)
[2020-12-12] MEDS ORDERED: ACETAMINOPHEN 325 MG TABLET PO PRN (12:30)
[2020-12-12] MEDS ORDERED: PHARMACOKINETIC CONSULTATION MC ONE (13:00)
[2020-12-12] MEDS ORDERED: VANCOMYCIN 2,000 MG in SODIUM CHLORIDE 0.9% 500 ML IV ONE (13:00)
[2020-12-12] MEDS ORDERED: PHARMACOKINETIC MONITORING MC PRN (13:00)
--- NOTE | 2020-12-12 13:00 | NUR ---
REPORT TO KOMAL JO
[2020-12-12 13:42] VITALS: BP 133/84
[2020-12-12 13:48] VITALS: BP 133/84
[2020-12-12] MEDS ORDERED: BUPIVACAINE/PF 0.5% ONE (14:46)
[2020-12-12] MEDS ORDERED: EPINEPHRINE 1 MG/ML, 1ML ONE (14:46)
[2020-12-12] MEDS ORDERED: HEPARIN 5,000 UNITS/ML, 1ML ONE ×2 (14:46→16:41)
[2020-12-12] MEDS ORDERED: SODIUM CHLORIDE 0.9% 1,000 ML IV SCH (15:30)
[2020-12-12] MEDS ORDERED: CHLORHEXIDINE 15 ML UDC PO ONE (15:30)
[2020-12-12] MEDS ORDERED: BUPIVACAINE/PF-EPI 0.5% 1:200K INFIL ONE (15:49)
[2020-12-12] MEDS ORDERED: HEPARIN 5,000 UNITS/ML, 1ML SQ ONE (15:50)
[2020-12-12] MEDS ORDERED: FENTANYL PF 100 MCG/2ML ONE (16:00)
[2020-12-12] MEDS ORDERED: MIDAZOLAM 1 MG/ML, 2ML ONE (16:00)
[2020-12-12] MEDS ORDERED: CEFAZOLIN 1,000 MG ONE (16:12)
[2020-12-12] MEDS ORDERED: VASOPRESSIN 20 UNIT/ML, 1ML ONE (16:12)
[2020-12-12] MEDS ORDERED: PROPOFOL 10 MG/ML, 20ML ONE (16:12)
[2020-12-12] MEDS ORDERED: ONDANSETRON 2MG/ML, 2ML ONE (16:12)
[2020-12-12] MEDS ORDERED: PHENYLEPHRINE 10 MG/ML ONE (16:12)
[2020-12-12] MEDS ORDERED: PROTAMINE SULFATE 10 MG/ML, 5ML ONE (16:50)
[2020-12-12] MEDS: CALCIUM ACETATE 667 MG CAPSULE PO SCH (17:00)
[2020-12-12] MEDS ORDERED: ACETAMINOPHEN 650 MG/20.3 ML UDC ONE (17:38)
[2020-12-12 18:48] VITALS: BP 106/72
[2020-12-12] MEDS ORDERED: HYDROcodone/APAP 5/325 TABLET PO PRN (19:00)
[2020-12-12] MEDS ORDERED: TEMAZEPAM 15 MG CAPSULE PO PRN (21:00)
[2020-12-12] MEDS: THIAMINE 100MG TABLET PO SCH (21:02)
[2020-12-12] MEDS: HYDROcodone/APAP 5/325 TABLET PO PRN (22:50)
[2020-12-12 23:33] VITALS: BP 103/68
[2020-12-13 02:49] VITALS: BP 97/64
[2020-12-13 07:07] VITALS: BP 105/72
[2020-12-13] MEDS: THIAMINE 100MG TABLET PO SCH ×2 (09:42→20:07)
[2020-12-13] MEDS: METOPROLOL TARTRATE 25 MG TAB PO SCH ×2 (09:44→20:01)
[2020-12-13] MEDS: CALCIUM ACETATE 667 MG CAPSULE PO SCH ×3 (09:44→16:57)
[2020-12-13] MEDS: SENNA/DOCUSATE TABLET PO SCH (09:44)
[2020-12-13] MEDS ORDERED: VANCOMYCIN 2,000 MG in SODIUM CHLORIDE 0.9% 500 ML IV ONE (10:30)
[2020-12-13 13:52] VITALS: BP 109/70
[2020-12-13 14:11] LABS: ANION GAP 14 mmol/L (5-15); CALCIUM 9.7 mg/dL (8.5-10.1); CHLORIDE 101 mmol/L (98-107)
[2020-12-13 19:51] VITALS: BP 98/51
[2020-12-13] MEDS: HYDROcodone/APAP 5/325 TABLET PO PRN (20:07)
[2020-12-14 03:00] VITALS: BP 94/51
[2020-12-14 06:07] LABS: ANION GAP 14 mmol/L (5-15); CALCIUM 9.6 mg/dL (8.5-10.1); CHLORIDE 101 mmol/L (98-107)
[2020-12-14 06:08] LABS: ALBUMIN 2.7 g/dL (3.4-5.0)
[2020-12-14 06:45] VITALS: BP 111/74
[2020-12-14] MEDS: METOPROLOL TARTRATE 25 MG TAB PO SCH ×2 (08:00→21:00)
[2020-12-14] MEDS: SENNA/DOCUSATE TABLET PO SCH (08:00)
[2020-12-14] MEDS: CALCIUM ACETATE 667 MG CAPSULE PO SCH ×3 (08:00→18:02)
[2020-12-14] MEDS: THIAMINE 100MG TABLET PO SCH ×3 (08:00→21:46)
[2020-12-14 12:15] VITALS: BP 108/68
[2020-12-14 18:56] VITALS: BP 102/61
[2020-12-15 00:46] VITALS: BP 98/64
[2020-12-15 06:19] LABS: BASOPHILS % (AUTO) 1 % (0-1); EOSINOPHILS % (AUTO) 3 % (1-7); LYMPHOCYTES % (AUTO) 31 % (22-44); MEAN CORPUSCULAR HEMOGLOBIN 34.5 pg (27.0-34.8); MEAN CORPUSCULAR HGB CONC 33.8 g/dL (32.4-35.8); MEAN PLATELET VOLUME 9.2 fL (7.4-10.4); MONOCYTES % (AUTO) 12 % (2-9); NEUTROPHILS % (AUTO) 53 % (42-75); PLATELET COUNT 145 x10^3/uL (130-400); RED BLOOD COUNT 3.37 x10^6/uL (3.82-5.3); RED CELL DISTRIBUTION WIDTH 14.6 % (9.6-15.2)
[2020-12-15 06:34] LABS: CHLORIDE 98 mmol/L (98-107)
[2020-12-15 06:45] LABS: ALBUMIN 2.5 g/dL (3.4-5.0); ALKALINE PHOSPHATASE 60 U/L (45-117); ANION GAP 13 mmol/L (5-15); BILIRUBIN,TOTAL 0.5 mg/dL (0.2-1.0); CALCIUM 9.5 mg/dL (8.5-10.1); TOTAL PROTEIN 6.6 g/dL (6.4-8.2); VANCOMYCIN,RANDOM 23.1 mcg/mL
[2020-12-15 06:46] LABS: ALANINE AMINOTRANSFERASE < 6 U/L (12-78)
[2020-12-15 07:00] VITALS: BP 104/66
[2020-12-15] MEDS: THIAMINE 100MG TABLET PO SCH (08:29)
[2020-12-15] MEDS: METOPROLOL TARTRATE 25 MG TAB PO SCH (08:30)
[2020-12-15] MEDS: SENNA/DOCUSATE TABLET PO SCH (08:30)
[2020-12-15] MEDS: CALCIUM ACETATE 667 MG CAPSULE PO SCH ×3 (08:30→17:44)
[2020-12-15] MEDS ORDERED: LIDOCAINE 1%, 20ML ONE (09:39)
[2020-12-15] MEDS ORDERED: FLUMAZENIL 0.1 MG/1 ML, 5ML ONE (13:14)
[2020-12-15] MEDS ORDERED: FENTANYL PF 100 MCG/2ML ONE (13:14)
[2020-12-15] MEDS ORDERED: NALOXONE 1 MG/ML, 2ML ONE (13:14)
[2020-12-15] MEDS ORDERED: MIDAZOLAM 1 MG/ML, 5ML ONE (13:14)
== END 2020-12-15 19:00 | disposition home or self-care (01) | DRG 952 ==
LOC: ED 09:11 → SUATTDRO 11:09 → EDIP 12:02 → 4NE 13:32
PROVIDERS: ADMIT Internal Medicine; ATTEND Family Medicine
PROC: 03WY07Z Revision of Autologous Tissue Substitute in Upper Artery, Open Approach (ICD-10-PCS; 2020-12-12)
PROC: 0JBD0ZZ Excision of Right Upper Arm Subcutaneous Tissue and Fascia, Open Approach (ICD-10-PCS; 2020-12-12)
PROC: 02HV33Z Insertion of Infusion Device into Superior Vena Cava, Percutaneous Approach (ICD-10-PCS; principal; 2020-12-15)
PROC: B548ZZA Ultrasonography of Superior Vena Cava, Guidance (ICD-10-PCS; 2020-12-15)
PROC: B518ZZA Fluoroscopy of Superior Vena Cava, Guidance (ICD-10-PCS; 2020-12-15)
PROC: 0JH63XZ Insertion of Tunneled Vascular Access Device into Chest Subcutaneous Tissue and Fascia, Percutaneous Approach (ICD-10-PCS; 2020-12-15)
PROC: 02H633Z Insertion of Infusion Device into Right Atrium, Percutaneous Approach (ICD-10-PCS; 2020-12-15)
PROC: B518ZZA Fluoroscopy of Superior Vena Cava, Guidance (ICD-10-PCS; 2020-12-15)
PROC: B544ZZA Ultrasonography of Left Jugular Veins, Guidance (ICD-10-PCS; 2020-12-15)
DX: T82.7XXA Infection and inflammatory reaction due to other cardiac and vascular devices, implants and grafts, initial encounter (principal); I12.0 Hypertensive chronic kidney disease with stage 5 chronic kidney disease or end stage renal disease; E87.2 Acidosis; D63.1 Anemia in chronic kidney disease; E87.1 Hypo-osmolality and hyponatremia; I95.9 Hypotension, unspecified; T82.510A Breakdown (mechanical) of surgically created arteriovenous fistula, initial encounter; E87.5 Hyperkalemia; E83.52 Hypercalcemia; I72.1 Aneurysm of artery of upper extremity; N18.6 End stage renal disease; Y71.2 Prosthetic and other implants, materials and accessory cardiovascular devices associated with adverse incidents; Y83.2 Surgical operation with anastomosis, bypass or graft as the cause of abnormal reaction of the patient, or of later complication, without mention of misadventure at the time of the procedure; Z20.822 Contact with and (suspected) exposure to COVID-19; Z99.2 Dependence on renal dialysis; Z91.040 Latex allergy status; Y92.89 Other specified places as the place of occurrence of the external cause
CPT/HCPCS: 36415; 99285; J3490; S0020; 36558; 36573; 71045; 76937; 80048; 80053; 80069; 80202; 85025; 85610; 85730; 87635; 93005; 99156; 99157; C1894; G0378; J0171; J0690; J1644; J2250; J2405; J2704; J2720; J3010; J3370; C1750; C1751; C1769; J1642; J2310; J2370; J7030; J7040